=== PATIENT | female | born 1945 | race Caucasian/White ===

== ENCOUNTER 2017-02-01 14:51 | Emergency (ER) | payer OTHER, BC ==
[2017-02-01] MEDS ORDERED: IBUPROFEN 600 MG TAB PO ONE (15:06)
[2017-02-01] MEDS ORDERED: ONDANSETRON DISINTEGRATING 4 MG TAB PO ONE (15:06)
--- NOTE | 2017-02-01 15:44 | CPEKG ---
Heart Rate: 63 RR Interval: 952 P-R Interval: 160 QRSD Interval: 86 QT Interval: 396 QTC Interval: 406 P [place]: 4 QRS [place]: -31 T Wave [place]: 9 EKG Severity - OTHERWISE NORMAL ECG - EKG Impression: SINUS RHYTHM EKG Impression: LEFT AXIS DEVIATION Electronically Signed By: Rm Morfin 01-Feb-2017 23:29:16
--- NOTE | 2017-02-01 15:59 | EDPHY ---
H & P Stated Complaint: R wrist injury after mechanical fall. Time Seen by Provider: 02/01/17 15:48 - Personal History Current Tetanus/Diphtheria Vaccine: Unsure Current Tetanus Diphtheria and Acellular Pertussis (TDAP): Unsure - Medical/Surgical History Hx Asthma: No Hx Chronic Respiratory Disease: No Hx Diabetes: No Hx Cardiac Disease: No Hx Renal Disease: No Hx Cirrhosis: No Hx Alcoholism: No Hx HIV/AIDS: No Hx Splenectomy or Spleen Trauma: No Other PMH: Hiatal hernia repair, migraines, ?seizure, joint pain. - Social History Smoking Status: Former smoker Constitutional: Initial Vital Signs Temperature (C) 36.6 C 02/01/17 15:03 Heart Rate 76 02/01/17 15:03 Respiratory Rate 14 02/01/17 15:03 Blood Pressure 117/75 02/01/17 15:03 O2 Sat (%) 93 02/01/17 15:03 O2 Delivery Mode [Procedural Non-Rebreather Mask 4th] O2 Delivery Mode [Procedural Non-Rebreather Mask 3rd] O2 Delivery Mode [Procedural Non-Rebreather Mask 2nd] O2 Delivery Mode [Procedural Non-Rebreather Mask 1st] O2 Delivery Mode Room Air O2 (L/minute) [Procedural 4th] 15 O2 (L/minute) [Procedural 3rd] 15 O2 (L/minute) [Procedural 2nd] 15 O2 (L/minute) [Procedural 1st] 15 Allergies/Adverse Reactions: omeprazole [From Prilosec] Allergy (Verified 02/01/17 16:28) Home Medications: Medication Instructions Recorded Concerta 02/01/17 Prozac 10 MG (*) 02/01/17 Topamax 02/01/17 Medical Decision Making - Diagnostics Imaging Results: Imaging Impressions Wrist X-Ray 02/01/17 15:08 Impression: 1. Intra-articular distal right radius fracture as detailed above. 2. Suspect undisplaced ulnar styloid fracture. Imaging: Discussed imaging studies w/ at home independent call center agent Radiologist, I viewed and interpreted images myself ED Course/Re-evaluation: CHIEF COMPLAINT: Right wrist injury HISTORY OF PRESENT ILLNESS: The patient is a 71 y/o female arriving with her family complaining of right wrist pain secondary to a mechanical fall this afternoon. She was walking up a wooden stairway and caught her sandal on the edge causing her to fall and land on her right wrist. She denies preceding lightheadedness, chest pain, dyspnea, or other complaints. She did not strike her head and denies loss of consciousness, weakness, paresthesias, spinal pain, abdominal pain, chest pain, or other injuries. No anticoagulants. REVIEW OF SYSTEMS: A 10 point review of systems was performed and is negative with the exception of the elements mentioned in the history of present illness. PHYSICAL EXAM: HR, BP, O2 Sat, RR. Temp noted General Appearance: Alert, well hydrated, appropriate, and non-toxic appearing. Head: Atraumatic without scalp tenderness or obvious injury Eyes: Pupils equal, round, reactive to light and accommodation, EOMI, no trauma , no injection. Nose: Atraumatic, no rhinorrhea, clear. Throat: Mucus membranes moist. Neck: Supple, non-tender, no lymphadenopathy. Respiratory: No retractions, no distress, no wheezes, and no accessory muscle use. Lungs are clear to auscultation bilaterally. Cardiovascular: Regular rate and rhythm, no murmurs, rubs, or gallops. Right radial pulse intact. Good capillary refill all extremities. Gastrointestinal: Abdomen is soft, non-tender, non-distended, no masses, no rebound, no guarding, no peritoneal signs. Musculoskeletal: Right wrist deformity and dorsal angulation with overlying tenderness. Otherwise normal active ROM of all extremities, atraumatic. Neurological: Alert, appropriate, and interactive. Nonfocal neuro exam. Skin: No rashes, good turgor, no nodules on palpation. PAST MEDICAL HISTORY: Migraines PAST SURGICAL HISTORY: Hiatal hernia surgery SOCIAL HISTORY: Visiting from [id number]. Family at bedside. DIAGNOSTICS/PROCEDURES/CRITICAL CARE TIME: Right wrist x-ray: Colles' fracture with ulnar styloid fracture The 12 lead EKG was interpreted by myself. Sinus rhythm rate 63. See hard copy and/or "tracemaster" electronic copy for interpretation. Post-reduction right wrist x-ray: 1640: Procedure: Conscious sedation. Indication: Fracture reduction The patient is an appropriate candidate to tolerate procedural sedation. The patient's vitals signs and mental status are appropriate. The risks, benefits and alternatives of the sedation were discussed with the patient. The patient is ASA classification 1. The patient's Mallampati airway score was 1 and the patient did meet the 3-3-2 airway measurements. A time out was completed. The patient was sedated with 50mg IV Propofol and 30mg IV Ketamine. The patient was monitored with continuous pulse oximetry, electronic device monitor and end tidal CO2. There were no complications and no significant hypoxemia. I performed both the sedation and the procedure. The total time I spent at the bedside during the procedural sedation was 25 minutes. The patient was examined after the procedural sedation and has returned to their pre-sedation baseline with normal vital signs and a normal examination. Procedure: Reduction of Angulated Right Wrist Fracture Time-out completed immediately before the procedure. IV established. O2 administered. Placed on pulse oximeter and ETCO2 monitor. Neurovascular exam intact pre-procedure. Given 30mg IV Ketamine for pain and 50mg IV Propofol for sedation. The right wrist was reduced using traction and dorsal pressure and volar flexion. Reassessed post-procedure. Neurovascular status intact-Normal Motor and sensory exam. Exam indicated reduction. Confirmed reduction on X-ray. Splint applied by myself and tech. The procedure was performed by myself, Dr. Morfin. DIFFERENTIAL DIAGNOSIS: The differential diagnosis for the patient's wrist injury included but was not limited to Colles' fracture, ulnar styloid fracture , ligamentous injury, contusion, muscular strain. MEDICAL DECISION MAKING: This is a 71 y/o female with minimal prior medical history who presents with a right wrist deformity secondary to a mechanical fall today. She has obvious dorsally angulated deformity of her right wrist on exam. She is neurovascularly intact. No tenting of the skin or evidence of open fracture, compartment syndrome, and joints above and below the fracture are stable. No other trauma noted on exam. She did have an apparent vasovagal syncopal event while techs manipulated her wrist for x-ray. She has had no persisting effects from this. Her x-ray shows a dorsally angulated right wrist fracture that will require reduction and orthopedic follow up. Patient tolerated conscious sedation and reduction well. Post-reduction x-ray shows improved alignment of fracture. CMS remains intact. She will be discharged in a splint with standard wrist fracture care instructions and script for OxyIR and Zofran. Strict return precautions given. She is comfortable with this plan. - Data Points Medications Given: Discontinued Medications Sodium Chloride (Ns) 500 mls @ 0 mls/hr IV ONCE ONE PRN Reason: Wide Open Stop: 02/01/17 16:24 Last Admin: 02/01/17 16:25 Dose: 500 mls Ibuprofen (Motrin) 600 mg PO EDNOW ONE Stop: 02/01/17 15:07 Last Admin: 02/01/17 15:11 Dose: 600 mg Ketamine HCl (Ketamine) 30 mg IVP EDNOW ONE Stop: 02/01/17 17:02 Last Admin: 02/01/17 17:00 Dose: 30 mg Ondansetron HCl (Zofran Odt) 4 mg PO EDNOW ONE Stop: 02/01/17 15:07 Last Admin: 02/01/17 15:11 Dose: 4 mg Propofol (Diprivan) 50 mg IVP EDNOW ONE Stop: 02/01/17 17:02 Last Admin: 02/01/17 17:02 Dose: 50 mg Departure - Departure Disposition: Home, Routine, Self-Care Clinical Impression: Distal radius fracture, right Qualifiers: Encounter type: initial encounter Fracture type: closed Fracture morphology: Colles' Qualified Code(s): S52.531A - Colles' fracture of right radius, initial encounter for closed fracture Condition: Good Instructions: Wrist Fracture in Adults (ED) Additional Instructions: 1. Keep splint in place until follow up. 2. Take OxyIR as prescribed when needed for severe pain. This medication can make you constipated so we advise following a high-fiber diet to help prevent constipation. 3. Use Zofran as prescribed if needed for nausea. 4. Follow up with your orthopedist within one week without fail. 5. Return to the ED for severe pain, weakness, numbness, or other worsening of condition. Referrals: CLARISSE WHIPPLE [Other] - As per Instructions Report Scribed for: Rm Morfin Report Scribed by: Jada Gonzalez Date of Report: 02/01/17 Time of Report: 17:15
[2017-02-01] MEDS ORDERED: NS 500 ML IV ONE (16:23)
[2017-02-01] MEDS ORDERED: PROPOFOL 200 MG/20 ML VIAL ONE (16:33)
[2017-02-01] MEDS ORDERED: KETAMINE 100 MG/10 ML SYR ONE (16:33)
[2017-02-01] MEDS ORDERED: PROPOFOL 200 MG/20 ML VIAL IVP ONE (17:01)
[2017-02-01] MEDS ORDERED: KETAMINE 100 MG/10 ML SYR IVP ONE (17:01)
[2017-02-01 18:11] VITALS: BP 141/78; PULSE 75; RESP 18; TEMP 98.4; O2SAT 94
== END 2017-02-01 18:08 | disposition home or self-care (01) ==
PROC: 0PSHXZZ Reposition Right Radius, External Approach (ICD-10-PCS; principal; 2017-02-01)
DX: S52.531A Colles' fracture of right radius, initial encounter for closed fracture (principal); Z87.891 Personal history of nicotine dependence; W18.39XA Other fall on same level, initial encounter; Y92.89 Other specified places as the place of occurrence of the external cause; Y93.01 Activity, walking, marching and hiking
CPT/HCPCS: 25605; 73110; 93005; 96360; 99152; 99153; 99285; J2704